=== PATIENT | female | born 1960 | race Caucasian/White ===

== ENCOUNTER 2021-11-30 11:58 | Emergency (ER) | payer MEDICARE ==
[~2021-11-30 11:58] MED LIST: CYMBALTA60 MG PO; ENDOCET 5-3251 EACH PO; JARDIANCE25 MG PO; METFORMIN HCL1000 MG PO; NEURONTIN 300300 MG PO; RELAFEN 750 MG750 MG PO; SOLIQUA SC; ULTRAM50 MG PO; VITAMIN D250000 UNIT PO
[2021-11-30 14:10] LABS: BUN/CREATININE RATIO 15 (0-10)
[2021-11-30 14:39] LABS: HEMOGLOBIN 14.8 gm/dl (12.3-15.3); RED BLOOD COUNT 4.92 M/UL (4.00-5.10); WHITE BLOOD COUNT 8.1 K/UL (4.5-11.0)
[2021-11-30] MEDS ORDERED: BENTYL 20MG TAB20 MG PO (17:09)
[2021-11-30] MEDS ORDERED: ZOFRAN 4 MG TAB4 MG PO (17:09)
== END 2021-11-30 17:25 | disposition home or self-care (01) ==
LOC: ER1 11:58
PROVIDERS: Physician Assistant Medical
DX: R10.84 Generalized abdominal pain (principal); E11.9 Type 2 diabetes mellitus without complications
CPT/HCPCS: 80053; 81001; 82550; 82553; 83690; 84484; 85025; 93005; 99284; J2270; J2405; Q9967